=== PATIENT | male | born 1960 | race Caucasian/White ===

== ENCOUNTER 2021-10-16 10:40 | Day surgery (SDC) | payer OTHER ==
[~2021-10-16] VITALS: Ht 182.9 cm; Wt 96.3 kg
[~2021-10-16 10:40] MED LIST: AMLO-142 PO; FAMO20 PO; OMEP10 PO; OMEP20 PO; SODIUM CHLORIDE 0.9% 1,000 ML ONE
[2021-10-16] MEDS ORDERED: PROPOFOL 1% 20 ML VIAL IVP ONE (10:41)
[2021-10-16] MEDS ORDERED: LIDOCAINE/PF 2% 5 ML SYRINGE IVP ONE (10:41)
[2021-10-16 10:58] LABS: COVID AG,FIA SOURCE NASAL SWAB
[2021-10-16] MEDS ORDERED: SODIUM CHLORIDE 0.9% 1,000 ML IV ONE (11:30)
== END 2021-10-16 13:55 | disposition home or self-care (01) ==
LOC: SURGERY 10:40
PROVIDERS: ATTEND Student in an Organized Health Care Education/Training Program
DX: D13.1 Benign neoplasm of stomach (principal); K29.50 Unspecified chronic gastritis without bleeding; K44.9 Diaphragmatic hernia without obstruction or gangrene; K31.89 Other diseases of stomach and duodenum; I10 Essential (primary) hypertension; K21.9 Gastro-esophageal reflux disease without esophagitis; Z72.89 Other problems related to lifestyle; Z79.899 Other long term (current) drug therapy; Z98.890 Other specified postprocedural states
CPT/HCPCS: 43239; 87426; 88305; 88312; C9803; J2704; J3490; J7030